=== PATIENT | male | born 1970 | race Two or more races ===

== ENCOUNTER 2024-10-08 12:10 | Emergency (ER) | payer BC, OTHER ==
[2024-10-08] MEDS ORDERED: Bacitracin 1 PK ONE (13:47)
[2024-10-08] MEDS ORDERED: Acetaminophen 500 MG TAB ONE (13:47)
== END 2024-10-08 13:49 | disposition home or self-care (01) ==
LOC: ERS 12:10
DX: S00.01XA Abrasion of scalp, initial encounter (principal); W10.9XXA Fall (on) (from) unspecified stairs and steps, initial encounter
CPT/HCPCS: 99283